=== PATIENT | male | born 1960 | race African-American/Black ===

== ENCOUNTER 2021-06-25 09:45 | Emergency (ER) | payer OTHER, MEDICAID ==
[~2021-06-25] VITALS: Ht 167.6 cm; Wt 72.7 kg
[2021-06-25 11:11] VITALS: BP 149/85
--- NOTE | 2021-06-25 11:27 | PHYS DOC ---
Past Medical History Past Surgical History: No Surgical History Additional Past Surgical Histo: CARPAL TUNNEL General Adult EDM: Chief Complaint: INSECT BITE HPI: HPI: Patient is a 61-year-old male presents to the emergency department complaining o f an insect bite to his lower abdomen. Reports he noticed a small bump 2 days ago that has become reddened and more swollen over the past 2 days. Patient denies taking pain medications currently rating at a 4 out of 10 pain. Patient denies seeing an insect bite him, believes it may be an insect bite. Patient denies a history of abscesses. Patient denies recent fever or chills, denies trauma to his abdomen, denies nausea, vomiting, diarrhea. Patient denies chest pains, chest or nasal congestion. Patient denies other people living in his home with the same symptoms as he. Patient denies other physical complaints or physical concerns. Patient reports his last tetanus immunization was greater than 5 years ago. Patient reports taking amlodipine for hypertension, meloxicam for chronic arthritis. Patient denies other physical complaints physical concerns. Review of Systems: Review of Systems: 14 body systems of review of systems have been reviewed. See HPI for pertinent positives and negative responses, otherwise all other systems are negative, nonpertinent or noncontributory. Constitutional: Negative except as outlined in HPI above. Skin: Negative except as outlined in HPI above. Eyes: Negative except as outlined in HPI above. HENT: Negative except as outlined in HPI above. Respiratory: Negative except as outlined in HPI above. Cardiovascular: Negative except as outlined in HPI above. GI: Negative except as outlined in HPI above. : Negative except as outlined in HPI above. Musculoskeletal: Negative except as outlined in HPI above. Integument: Negative except as outlined in HPI above. Neurologic: Negative except as outlined in HPI above. Endocrine: Negative except as outlined in HPI above. Lymphatic: Negative except as outlined in HPI above. Psychiatric: Negative except as outlined in HPI above. Heart Score: C/O Chest Pain: No Risk Factors: Risk Factors: DM, Current or recent (<one month) smoker, HTN, HLP, family history of CAD, obesity. Risk Scores: Score 0 - 3: 2.5% MACE over next 6 weeks - Discharge Home Score 4 - 6: 20.3% MACE over next 6 weeks - Admit for Clinical Observation Score 7 - 10: 72.7% MACE over next 6 weeks - Early Invasive Strategies Allergies: Allergies: Allergies Coded Allergies Type Severity Reaction Last Updated Verified Sulfa (Sulfonamide Antibiotics) Allergy Intermediate 06/25/21 Yes Physical Exam: PE: Constitutional: Well developed, well nourished, no acute distress, non-toxic appearance. 61-year-old male in no apparent distress. HENT: Normocephalic, atraumatic. Eyes: Conjunctiva normal, no discharge. Neck: Normal range of motion, no stridor. Cardiovascular: No cyanosis appreciated, distal cap refill less than 2 seconds. Lungs & Thorax: Patient is in no respiratory distress, no audible adventitious lung sounds appreciated. Abdomen: Nontender, no abnormalities noted. Except for lower abdomen center midline right at pubic hairline there is a 2 cm in diameter area of induration and erythema fluctuant abscess with central punctum that is not draining. No other abscesses or infectious sites appreciated. Skin: Warm, dry, no erythema, no rash. Back: No tenderness, no deformities. Extremities: No tenderness, no cyanosis, no clubbing, ROM intact, no edema. Neurologic: Alert and oriented X 3, normal motor function, normal sensory function, no focal deficits noted. Psychologic: Affect normal, judgement normal, mood normal. Current Patient Data: Vital Signs: Vital Signs Date Time Temp Pulse Resp B/P (MAP) Pulse Ox O2 Delivery O2 Flow Rate FiO2 06/25/21 11:11 81 20 149/85 (106) 96 Room Air 06/25/21 10:06 97.9 97.9 EKG: EKG: [] Radiology/Procedures: Radiology/Procedures: [] Course & Med Decision Making: Course & Med Decision Making Pertinent Labs and Imaging studies reviewed. (See chart for details) 61-year-old male, vital signs reviewed, presents to the emergency department concerning abscess to lower abdomen. Physical examination concerning for ab scess, suspicious for folliculitis or infected hair follicle, there is no drainage, abscess is fluctuant, see I&D note. Scant amount of purulent drainage expressed during I&D, will start on clindamycin regimen related to patient's sulfa allergy, will also cover with topical mupirocin ointment. Discussed findings with patient, home care, the abscess cavity was packed with gauze packing, discussed strict follow-up with primary care for reevaluation, discussed antibiotics and side effects, return to ER precautions and concerns were reviewed, patient gave verbal understanding of and is amenable to ED discharge planning. Discussed with the patient all findings and diagnostic testing as well as the need to follow-up with their primary care provider for further evaluation and treatment or return to the ED if any new or worsening symptoms. Strict return precautions were also discussed at length, the patient voiced understanding and agreement with the discharge planning. The patient was nontoxic in appearance, in no apparent distress, and hemodynamically stable at the time of disposition. Dragon Disclaimer: Dragon Disclaimer: This electronic medical record was generated, in whole or in part, using a voice recognition dictation system. Incision and Drainage Time: 12 PM noon Confirmed : Patient, procedure, side, and site correct. Consent: Patient has given verbal consent for incision and drainage of abscess. Indication: Abscess Performed by: Mahnaz Hoover HEAD HOUSEKEEPER-C Supervision: Dr. Vizcaino was available for consult regarding the critical aspects of the procedure, incision, and post procedure exam. Preprocedure exam: Circulation, motor, and sensory intact. Procedural sedation: Not indicated. Description Location: Lower abdomen and superior pubic hairline, center Anesthesia: Was achieved with 1 cc 1% lidocaine without epinephrine Preparation: Sterile field established, skin prepped with Betadine solution. Procedure The patient was positioned appropriately. An incision was then made over the central punctum using a #11 blade scalpel. Technique: A fluid collection was manually decompressed, wound probed, loculations decompressed . Drainage : Scant amount of purulent, bloody, serosanguineous drainage was expressed, the cavity was packed with 1/4 inch gauze packing. This area was then dressed by ED nursing staff Post procedure exam : Circulation, motor, sensory examination intact. Patient tolerated : Well. Complications: There were no complications. Follow-up: Home care instructions given. Total time: 5 minutes. Departure Departure Impression: Primary Impression: Abscess Disposition: 01 HOME / SELF CARE / HOMELESS Condition: GOOD Referrals: UNKNOWN PCP NAME (PCP) Patient Instructions: Abscess Additional Instructions: You were seen today in the emergency department for an infection to your lower abdomen. This infection was treated with an incision and drainage of the purulent infectious material. This was then packed with a gauze material. Please cleanse daily and shower, you may pull this out within the next 2 or 3 days. As we discussed I have started you on an oral antibiotic and a topical antibiotic please use as directed until complete. Please follow-up with your primary care physician Dr. De La Garza at the [facility] this week for reevaluation of this infectious site. You may use [id number] Tylenol or Motrin for discomfort. Please return to the emergency department for worsening symptoms or other concerns. Scripts Mupirocin (MUPIROCIN OINTMENT) 22 Gm Oint...g. 1 SPENCER TP TID for WOUND CARE, #1 EACH 0 Refills Apply to infection site 3 times a day for the next 7 days. Prov: MAHNAZ SARABIA APRN 06/25/21 Clindamycin Hcl (CLINDAMYCIN HCL) 300 Mg Capsule 3 CAP PO TID for skin infection for 7 Days, #63 CAP 0 Refills Prov: MAHNAZ SARABIA APRN 06/25/21 MAHNAZ SARABIA APRN Jun 25, 2021 11:27
[2021-06-25] MEDS ORDERED: CLINDAMYCIN HCL 150 MG CAPSULE. PO ONE (11:30)
[2021-06-25] MEDS ORDERED: LIDOCAINE 1% Multi-Dose 20 ML VIAL. INJ ONE (11:30)
[2021-06-25] MEDS ORDERED: DIPHTH,PERTUSS(ACELL),TET TOX 0.5 ML DISP.SYRIN. VAX IM ONE (11:30)
[2021-06-25] MEDS ORDERED: MUPI22OI2 TP (12:37)
[2021-06-25] MEDS ORDERED: CLIN-94 PO (12:37)
== END 2021-06-25 13:10 | disposition home or self-care (01) ==
LOC: ER 09:45
DX: S30.861A Insect bite (nonvenomous) of abdominal wall, initial encounter (principal); Z88.2 Allergy status to sulfonamides; W57.XXXA Bitten or stung by nonvenomous insect and other nonvenomous arthropods, initial encounter; Y93.89 Activity, other specified; Y92.89 Other specified places as the place of occurrence of the external cause; Y99.8 Other external cause status
CPT/HCPCS: 10060; 90471; 90715; 99283; J3490